=== PATIENT | female | born 1990 | race Caucasian/White ===

== ENCOUNTER 2016-10-22 08:49 | Emergency (ER) | payer OTHER ==
--- NOTE | 2016-10-22 09:48 | DIAGNOSTIC IMAGING REPORT ---
PROCEDURE: CT HEAD WITHOUT CONTRAST INDICATION: SINUSITIS TECHNIQUE: Axial CT images were acquired through the head. Coronal and sagittal reformations were created. COMPARISON: None. FINDINGS: No intracranial hemorrhage or extraaxial fluid collections. Ventricles are normal in size, shape and position. There is no mass, mass effect or midline shift. The rodney-white matter differentiation is normal. There is no edema. The calvarium is intact. The paranasal sinuses and mastoid air cells are normally aerated. The extracranial soft tissues and orbits are normal. IMPRESSION: 1. No CT evidence of acute intracranial process. 2. Findings discussed with Viktoriya at 10:[address] scans at this facility use dose modulation, iterative reconstruction, and/or weight-based dosing when appropriate to reduce radiation dose to as low as reasonably achievable.
--- NOTE | 2016-10-22 09:58 | DIAGNOSTIC IMAGING REPORT ---
PROCEDURE: XR CHEST 2 VIEW INDICATION: COUGH TECHNIQUE: PA and lateral views. COMPARISON: None. FINDINGS: Lungs are clear. Heart and mediastinum are normal. Thorax is normal. IMPRESSION: 1. Negative chest.
--- NOTE | 2016-10-22 11:02 | ED ORDER SUMMARY ---
..... Patient: MY MEJIA OrderSheet [facility] VisitID: [id number] [address] [place] [address] 26y, F Registration Date/Time: 10/22/2016 ORDER SHEET Weight: 75.2 kg (stated) Allergies: Sulfa Antibiotics GENERAL ORDERS: Chest 2V Urgent (09:10/22/2016 PHutchinson DO) (Ack 9:23 RKaruga) (9:53 EHassan R.N.) CT Head wo Cont Urgent (:10/22/2016 PHutchinson DO) (Ack 9:23 RKaruga) (9:53 EHassan R.N.) LP Tray (and patient needs to sign LP consent) (:10/22/2016 PHflchinson DO) (Ack 9:23 RKaruga) CBC w Diff Urgent (09:10/22/2016 PHutchinson DO) (Ack 9:23 RKaruga) CMP Urgent (09:10/22/2016 PHflchinson DO) (Ack 9:23 RKaruga) UA-Culture if indicated Urgent (:10/22/2016 PHutchinson DO) (Ack 9:23 RKaruga) (9:36 EHassan R.N.) Urine Drug Screen Urgent (09:10/22/2016 PHutchinson DO) (Ack 9:23 RKaruga) (9:36 EHassan R.N.) Urine Urgent (:10/22/2016 PHflchinson DO) (Ack 9:23 RKaruga) (9:36 EHassan R.N.) PT with INR Urgent (09:10/22/2016 PHutchinson DO) (Ack 9:23 RKaruga) Rapid Influenza Screen (Nasal Pharyngeal) (pickle processor swab) Urgent (:10/22/2016 PHutchinson DO) (Ack 9:28 RKaruga) (9:53 EHassan R.N.) PCT (Procalcitonin) Urgent (09:10/22/2016 PHutchinson DO) (Ack 10:21 LTapper) MEDICATION ORDERS: IV FLUIDS: IV NS : initial bolus 1000 mL (1000 mL/hr), then 1000 mL/hr for X1 (NOW) (:10/22/2016 [facility]) (Ack 9:59 SStone R.N.) (9:59 SStone R.N.) Dilaudid IV 0.5 mg (NOW) (:10/22/2016 [facility]) (Ack 9:59 SStone R.N.) (10:00 SStone R.N.) Zofran IV 4 mg (NOW) (:10/22/2016 [facility]) (Ack 9:59 SStone R.N.) (10:00 SStone R.N.) ORDER SHEET NOTES: [Electronically signed by Carla Juarez R.N. (11:10/22/2016)] [Electronically signed by Arnaud Sadler DO (11:10/23/2016)] [Electronically locked/signed by Carla Juarez R.N. (11:10/22/2016)]
--- NOTE | 2016-10-22 11:02 | ED CLINICAL REPORT ---
Clinical Report - Physicians/Mid Levels [facility] [address] [place] [address] 10/22/2016 8:50 Patient: MY MEJIA Time Seen: 09:06. Arrived- By private vehicle. Historian- patient. HISTORY OF PRESENT ILLNESS Is still present. Chief Complaint: HEADACHE. This started yesterday. It was gradual in onset and has been waxing/waning. Onset during light activity. It is described as pressure. Quality described as unlike previous headaches and burning. Located in the frontal, right maxillary, left maxillary and occipital region and facial region. Has had neck pain. At its maximum, severity described as moderate. When seen in the E.D., severity described as moderate. Modifying factors: worsened by bright light and noise; relieved by rest, quiet room and dark room. The patient has had photophobia and nausea. She has had vomiting. The vomiting has occurred only once. No bilious emesis, feculent emesis or frankly bloody emesis. No numbness or weakness. Similar symptoms previously: Recent medical care: The patient was seen recently at this facility in the emergency department. REVIEW OF SYSTEMS No fever, sore throat, carbon monoxide exposure, chest pain or difficulty breathing. No abdominal pain, diarrhea, pain with urination, skin rash or enlarged lymph nodes. No back pain. The patient has had sinus pressure and muscle aches involving the neck. She has had a moderate cough productive of sputum. All systems otherwise negative, except as recorded above. PAST HISTORY Primary care provider: Dr Ivory ([facility]) Surgeries: Bladder hydro distention. Bladder surgery . Dental Work. Dilatation & Curettage. Laparoscopy. PROBLEMS: Bipolar Disorder. Depression. Anxiety Reaction. Irritable Bowel Syndrome. Gastroesophageal Reflux. Asthma Abscess. Medications: seroquel 50-100 mg q.h.s.. Allergies: Sulfa Antibiotics. SOCIAL HISTORY Never smoker. No alcohol use or drug use. Residence: in [facility] - states visiting locally. ADDITIONAL NOTES The nursing notes have been reviewed. PHYSICAL EXAM Vital Signs: 10/22/2016 09:00 BP: 131/73. HR: 78. RR: 18. O2 saturation: 100%. Temp: 97.8 F. Pain level now: 810. Appearance: Alert. No acute distress. Head: No tenderness to palpation/percussion over the sinuses or temporal artery tenderness. Eyes: Pupils equal, round and reactive to light. Eyes normal inspection. ENT: Pharynx normal. Neck: Normal inspection. CVS: Normal heart rate and rhythm. Heart sounds normal. Pulses normal. Respiratory: No respiratory distress. Breath sounds normal. Abdomen: Soft and nontender. Back: Normal inspection. No CVA tenderness. Skin: Skin warm and dry. Normal skin color. No rash. Normal skin turgor. Extremities: Extremities exhibit normal ROM. No lower extremity edema. Neuro: Oriented X 3. Alert. Abnormal mood/affect. Speech normal. Cranial nerves normal (as tested). No cerebellar findings. No motor deficit. No sensory deficit. Reflexes normal. LABS, X-RAYS, AND EKG Chest X-ray: No acute disease. Normal lung markings present. Normal heart size. Mediastinum normal. Great vessels normal. No infiltrate. No fracture. Views: PA and lateral. Technique: good. The X-rays were interpreted contemporaneously by me. CT Head: Normal study. No acute changes. No bony abnormalities, no hemorrhage, no intracranial mass, no midline shift and no hydrocephalus. (mild right maxillary sinusitis). Head CT performed without contrast. The study was independently viewed by me, interpreted by the radiologist and discussed with the radiologist. Laboratory Tests: UA-Culture if indicated: (JHONNY: 10/22/2016 09:30) ( MsgRcvd 10/22/2016 10:02) Final results Test Result Flag Units (Reference) URINE COLOR YELLOW URINE APPEARANCE CLEAR URINE GLUCOSE NEGATIVE (NEGATIVE) URINE BILIRUBIN NEGATIVE (NEGATIVE) URINE KETONE NEGATIVE (NEGATIVE) URINE SPECIFIC GRAVITY 1.025 (1.010-1.030) URINE PH 6.5 (5.0-8.0) URINE PROTEIN NEGATIVE (NEGATIVE) URINE UROBILINOGEN 0.2 EU/dL (0.2-1.0) URINE NITRITE NEGATIVE (NEGATIVE) URINE BLOOD NEGATIVE (NEGATIVE) URINE LEUK ESTERASE NEGATIVE (NEGATIVE) URINE RBC NONE SEEN rbc/hpf (0-1) URINE WBC 1-3 wbc/hpf (0-1) URINE EPITHELIAL CELLS 1-3 EPI/hpf (0-5) URINE BACTERIA TRACE (<1+) (NONE SEEN) URINE COMMENT CULT NOT INDICATED 5-10 CALCIUM OXALATE CRYSTALS/HPFURINE CULTURES ARE SET-UP BASED ON THE FOLLOWING CRITERIA:POSITIVE NITRITEPOSITIVE LEUKOCYTE ESTERASEGREATER THAN 10 WHITE BLOOD CELLSMODERATE (2+) OR GREATER BACTERIA Urine: (JHONNY: 10/22/2016 09:30) ( MsgRcvd 10/22/2016 09:43) Final results Test Result Flag Units (Reference) URINE NEGATIVE CBC w Diff: (JHONNY: 10/22/2016 09:55) ( MsgRcvd 10/22/2016 10:10) Final results Test Result Flag Units (Reference) WHITE BLOOD COUNT 7.6 K/uL (4.5-11.5) RED BLOOD COUNT 4.77 M/uL (4.00-5.20) HEMOGLOBIN 13.1 gm/dL (12.0-16.0) HEMATOCRIT 39.7 % (36.0-46.0) MEAN CELL VOLUME 83 fL (80-100) MEAN CORPUSCULAR HGB 27 pg (26-34) MEAN CORPUSCULAR HGB CONC 33 g/dL (31-37) RED CELL DISTRIBUTION WIDTH 12.6 % (11.6-14.8) PLATELET COUNT 241 K/uL (150-400) NEUTROPHIL % 71.3 % (50-75) LYMPH % 21.6 L % (25-40) MONO % 6.0 % (3-14) EOSINOPHIL % 1.0 % (0-4) BASOPHIL % 0.1 % (0-2) PT with INR: (JHONNY: 10/22/2016 09:55) ( MsgRcvd 10/22/2016 10:37) Final results Test Result Flag Units (Reference) INR 1.0 (0.8-1.2) Low Intensity Therapy: INR 1.5-2.0 PT range 18.5-23.1Mod.Intensity Therapy: INR 2.0-3.0 PT range 23.1-31.5High Intensity Therapy: INR 2.5-3.5 PT range 27.4-35.5High Intensity Therapy 2: INR 3.0-4.0 PT range 31.5-39.3 Urine Drug Screen: (JHONNY: 10/22/2016 09:30) ( MsgRcvd 10/22/2016 10:02) Final results Test Result Flag Units (Reference) AMPHETAMINE/METHAMPHETAMINE NEGATIVE (NEGATIVE) BARBITURATE NEGATIVE (NEGATIVE) BENZODIAZEPINE NEGATIVE (NEGATIVE) CANNABINOID NEGATIVE (NEGATIVE) COCAINE NEGATIVE (NEGATIVE) ECSTASY NEGATIVE (NEGATIVE) METHADONE NEGATIVE (NEGATIVE) OPIATE NEGATIVE (NEGATIVE) The urine drug screen is a qualitative screening test fordrug overdose and abuse. All screen results should beconsidered as presumptive.Drugs screened for are as follows:BenzodiazepinesCocaineAmphetamines/MetamphetaminesTHC (Tetrahydrocannabinol)OpiatesBarbituratesEcstasyMethadonePositive results are unconfirmed. For confirmation, notifythe lab for the specimen to be sent to the reference lab.All confirmations must be performed by a differentmethodology.The ingestion of natural herbal and plant productscontaining Ephedra/Ephedra metabolites can produce in urineone or more substances capable of cross reacting withamphetamine/methamphetamine immunoassays. These testsprovide a preliminary result only. A more specificalternative chemical method must be used to obtain aconfirmed analytical result. CMP: (JHONNY: 10/22/2016 09:55) ( MsgRcvd 10/22/2016 10:24) Final results Test Result Flag Units (Reference) GLUCOSE 118 H mg/dL (70-110) BUN 14 mg/dL (7-18) CREATININE 0.6 mg/dL (0.6-1.3) Estimated GFR >60 mL/min Estimated GFR- >60 mL/min Note: Persistent reduction over 3 months in eGFR<60 mL/min/1.73 m2 defines CKD. Patients with eGFR values>=60 mL/min/1.73 m2 may also have CKD if evidence ofpersistent proteinuria. Additional information may be foundat www.kidney.org. SODIUM 141 mmol/L (136-145) POTASSIUM 3.8 mmol/L (3.5-5.1) CHLORIDE 106 mmol/L (98-107) CARBON DIOXIDE 27 mmol/L (21-32) CALCIUM 9.0 mg/dL (8.5-10.1) TOTAL PROTEIN 7.7 g/dL (6.4-8.2) ALBUMIN 3.8 g/dL (3.3-5.0) BILIRUBIN, TOTAL 0.2 mg/dL (0.0-1.0) ALKALINE PHOSPHATASE 179 H U/L (46-116) AST (SGOT) 19 U/L (15-37) ALT (SGPT) 26 U/L (12-78) Rapid Influenza Screen: (JHONNY: 10/22/2016 09:48) ( MsgRcvd 10/22/2016 10:08) Final results SPECIMEN DESCRIPTION: OFFENDER EMPLOYMENT SPECIALIST SWAB Test Result Flag Units (Reference) RAPID INFLUENZA SCREEN DATE: 10/22/16 INFLUENZA A: NEGATIVE SCREEN FOR INFLUENZA A INFLUENZA B: NEGATIVE SCREEN FOR INFLUENZA B . Pulse Oximetry: 10/22/2016 09:00 O2 saturation: 100%. (FIO2 - room air). Interpretation: normal. PROGRESS AND PROCEDURES Course of Care: Normal Saline 1 liter IVPB given. Zofran 4 mg IVP given. Dilaudid 0.5 mg IVP given. 10:00. Pt has refused the LP despite full explanation of the need for this test to rule out dangerous causes of her HERNANDEZ such as SAH and meningitis. 10:31 10/22/16. Labs back and essentially unremarkable (mild alk phos elevation). CT with mild right max sinusitis c/w viral URI. Pt continues to refuse LP. Patient/family counseled. Old ED records reviewed. Patient has had multiple ED visits (8 visits to [facility] ED in past approx 4 months). Disposition: Discharged. Condition: stable and improved. CLINICAL IMPRESSION Acute headache. Acute viral rhinitis and maxillary sinusitis. Acute maxillary sinusitis Abnormal liver function test: alkaline phosphatase (mild). INSTRUCTIONS Do not work for three days. (You have refused the spinal tap / lumbar puncture and understand that I cannot rule out meningitis or bleeding in the brain without this). Warnings: Further evaluation is necessary in order to recheck abnormal lab, obtain test results, conduct further tests and assess the possibility of serious illness. It is very important to follow up with a physician. SEDATIVE MEDICATION: You were given sedative medication during your visit. Do not drive or operate dangerous machinery. CONTROLLED SUBSTANCE WARNINGS. GENERAL WARNINGS: Return or contact your physician immediately if your condition worsens or changes unexpectedly, if not improving as expected, or if other problems arise. Your Current Medications: CONTINUE TAKING THE FOLLOWING MEDICATIONS: seroquel 50-100 mg q.h.s.*. Prescription Medications: Zofran (orally disintegrating tablets) 4 mg: take 1-2 orally every 8 hours as needed for nausea and vomiting. Dispense ten (10). No refill. Substitution is permissible. OTC Medications: Acetaminophen (available over the counter): take according to label instructions. Afrin nasal spray (Available over the counter): Take according to label instructions. Motrin (available over the counter): take according to label instructions. Follow-up: Follow up with your doctor Cachorro tomorrow. (Electronically signed by Arnaud Sadler DO 10/23/2016 11:23)
--- NOTE | 2016-10-22 11:02 | ED NURSING NOTES ---
Clinical Report - Nurses [facility] [address] [place] [address] 10/22/2016 8:50 Patient: MY MEJIA TRIAGE Triage time 09:00. Acuity: LEVEL 4. Chief Complaint: (Right-sided headache with tingling and sinus pressure x 1 day. Now with n/v). --09:03 Kristie Euceda R.N. 09:00 10/22/16. BP: 131/73. HR: 78. RR: 18. O2 saturation: 100%. Temp: 97.8 F. Pain level now: 05/13. --09:03 Kristie Euceda R.N. Weight: 75.2 kg stated. Height/Length: 67 inches Per Patient. BMI: 26. --09:02 Kristie Euceda R.N. Medications seroquel 50-100 mg q.h.s.. --09:02 Krsitie Euceda R.N. Allergies Sulfa Antibiotics. --09:01 Kristie Euceda R.N. History Arrived by private vehicle. Historian: patient. Primary physician (Cachorro). This started yesterday. ( vomiting). 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 Took ibuprofen. SOCIAL HX: Never smoker. No alcohol use or drug use. The patient was exposed to MRSA. SELF HARM ASSESSMENT: A self harm assessment was performed. The patient answered "no" to the question "Do you have thoughts of harming or killing yourself?". She has been placed under supervision. NUTRITIONAL RISK ASSESSMENT: The nutritional risk assessment revealed no deficiencies. FUNCTIONAL ASSESSMENT: Functional assessment: no impairments noted. LEARNING NEEDS ASSESSMENT: The learning needs assessment revealed no barriers. SKIN INTEGRITY ASSESSMENT: Skin integrity risk assessment completed. No skin integrity risk identified. --09:03 Kristie Euceda R.N. PROBLEMS: Bipolar Disorder. Depression. Anxiety Reaction. Irritable Bowel Syndrome. Gastroesophageal Reflux. Asthma. --09:02 Kristie Euceda R.N. Abscess [RuleOut]. --09:02 Stone, Kristie, R.N. Interventions ID band on patient. To treatment room. --09:03 Kristie Euceda R.N. PHYSICAL ASSESSMENT GENERAL / NEURO / PSYCH: Oriented X 4. Appears in no acute distress. Appears in pain. HEENT: Pupils equal, round and reactive to light. No facial asymmetry noted. RESPIRATORY: Respirations not labored. CVS: Pulses within normal limits. GI / : Abdomen soft and nontender. SKIN: Skin is warm and dry. --09:04 Kristie Euceda R.N. NURSING PROGRESS NOTES Reassurance given. Patient identifiers checked. Call light placed in reach. Side rails up. Bed placed in lowest position. Patient waiting for evaluation. --09:04 Kristie uEceda R.N. 09:55 10/22/2016 Dilaudid (HYDROmorphone HCl PF) IVP 0.5 mg given over 1 minute(s) via site #1. Allergies verified and confirmed 5 rights. IV patency established. IV site checked: no pain, redness, or swelling. IV flushed thoroughly pre- and post-medication administration. --10:00 Kristie Euceda R.N. 09:55 10/22/2016 Zofran (Ondansetron HCl) IVP 4 mg given over 1 minute(s) via site #1. --10:00 Kristie Euceda R.N. 09:59 10/22/2016 Site #1 started via IV in the right antecubital space with an 20g angiocath; two attempts. Blood drawn: rainbow set. Labeled in the presence of the patient. Saline lock flushed with 10 mL saline. --09:59 Kristie Euceda R.N. 09:59 10/22/2016 Started bag #1 1000 mL IV Fluids IV NS (Saline); at 1000 mL/hr over 1 hour(s) via site #1 --09:59 Kristie Euceda R.N. 11:00 10/22/2016 IV Fluids IV NS Discontinued: bag #1. Total amount infused: 1000 mL. IV patency established. IV site checked: no pain, redness, or swelling. IV flushed thoroughly. --11:18 Carla Juarez R.N. 11:17 10/22/2016 Site #1 removed upon discharge. Bandage applied. --11:17 Carla Juarez R.N. DISPOSITION / DISCHARGE Departure time: 11:Oct 22 2016. ( First meeting with pt.). No learning barriers present. Discharge instructions provided and reviewed with the patient. Reviewed medication(s). Patient verbalized understanding. Written instructions provided in Cape Verdean. The patient was discharged by the physician. She was discharged home and accompanied by floodplain manager. She left the Emergency Department ambulatory and via private vehicle. Lamination Builder driving. --11:17 Carla Juarez R.N. 11:17 10/22/16. BP: 116/79. HR: 74. RR: 18. O2 saturation: 100%. --11:17 Carla Juarez R.N. Locked/Released at 10/22/2016 11:18 by Carla Juarez R.N.
--- NOTE | 2016-10-22 11:02 | ED NURSING NOTES ---
Clinical Report - Nurses [facility] [address] [place] [address] 10/22/2016 8:50 Patient: MY MEJIA TRIAGE Triage time 09:00. Acuity: LEVEL 4. Chief Complaint: (Right-sided headache with tingling and sinus pressure x 1 day. Now with n/v). --09:03 Kristie Euceda R.N. 09:00 10/22/16. BP: 131/73. HR: 78. RR: 18. O2 saturation: 100%. Temp: 97.8 F. Pain level now: 05/13. --09:03 Kristie Euceda R.N. Weight: 75.2 kg stated. Height/Length: 67 inches Per Patient. BMI: 26. --09:02 Kristie Euceda R.N. Medications seroquel 50-100 mg q.h.s.. --09:02 Kristie Euceda R.N. Allergies Sulfa Antibiotics. --09:01 Kristie Euceda R.N. History Arrived by private vehicle. Historian: patient. Primary physician (Cachorro). This started yesterday. ( vomiting). 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 Took ibuprofen. SOCIAL HX: Never smoker. No alcohol use or drug use. The patient was exposed to MRSA. SELF HARM ASSESSMENT: A self harm assessment was performed. The patient answered "no" to the question "Do you have thoughts of harming or killing yourself?". She has been placed under supervision. NUTRITIONAL RISK ASSESSMENT: The nutritional risk assessment revealed no deficiencies. FUNCTIONAL ASSESSMENT: Functional assessment: no impairments noted. LEARNING NEEDS ASSESSMENT: The learning needs assessment revealed no barriers. SKIN INTEGRITY ASSESSMENT: Skin integrity risk assessment completed. No skin integrity risk identified. --09:03 Kristie Euceda R.N. PROBLEMS: Bipolar Disorder. Depression. Anxiety Reaction. Irritable Bowel Syndrome. Gastroesophageal Reflux. Asthma. --09:02 Kristie Euceda R.N. Abscess [RuleOut]. --09:02 Stone, Kristie, R.N. Interventions ID band on patient. To treatment room. --09:03 Kristie Euceda R.N. PHYSICAL ASSESSMENT GENERAL / NEURO / PSYCH: Oriented X 4. Appears in no acute distress. Appears in pain. HEENT: Pupils equal, round and reactive to light. No facial asymmetry noted. RESPIRATORY: Respirations not labored. CVS: Pulses within normal limits. GI / : Abdomen soft and nontender. SKIN: Skin is warm and dry. --09:04 Kristie Euceda R.N. NURSING PROGRESS NOTES Reassurance given. Patient identifiers checked. Call light placed in reach. Side rails up. Bed placed in lowest position. Patient waiting for evaluation. --09:04 Kristie Euceda R.N. 09:55 10/22/2016 Dilaudid (HYDROmorphone HCl PF) IVP 0.5 mg given over 1 minute(s) via site #1. Allergies verified and confirmed 5 rights. IV patency established. IV site checked: no pain, redness, or swelling. IV flushed thoroughly pre- and post-medication administration. --10:00 Kristie Euceda R.N. 09:55 10/22/2016 Zofran (Ondansetron HCl) IVP 4 mg given over 1 minute(s) via site #1. --10:00 Kristie Euceda R.N. 09:59 10/22/2016 Site #1 started via IV in the right antecubital space with an 20g angiocath; two attempts. Blood drawn: rainbow set. Labeled in the presence of the patient. Saline lock flushed with 10 mL saline. --09:59 Kristie Euceda R.N. 09:59 10/22/2016 Started bag #1 1000 mL IV Fluids IV NS (Saline); at 1000 mL/hr over 1 hour(s) via site #1 --09:59 Kristie Euceda R.N. 11:00 10/22/2016 IV Fluids IV NS Discontinued: bag #1. Total amount infused: 1000 mL. IV patency established. IV site checked: no pain, redness, or swelling. IV flushed thoroughly. --11:18 Carla Juarez R.N. 11:17 10/22/2016 Site #1 removed upon discharge. Bandage applied. --11:17 Carla Juarez R.N. DISPOSITION / DISCHARGE Departure time: 11:Oct 22 2016. ( First meeting with pt.). No learning barriers present. Discharge instructions provided and reviewed with the patient. Reviewed medication(s). Patient verbalized understanding. Written instructions provided in Gabonese. The patient was discharged by the physician. She was discharged home and accompanied by marine fitter. She left the Emergency Department ambulatory and via private vehicle. Superintendent Overhead Distribution driving. --11:17 Carla Juarez R.N. 11:17 10/22/16. BP: 116/79. HR: 74. RR: 18. O2 saturation: 100%. --11:17 Carla Juarez R.N. Locked/Released at 10/22/2016 11:18 by Carla Juarez R.N.
--- NOTE | 2016-10-22 11:02 | ED ORDER SUMMARY ---
..... Patient: MY MEJIA OrderSheet [facility] VisitID: [id number] [address] [place] [address] 26y, F Registration Date/Time: 10/22/2016 ORDER SHEET Weight: 75.2 kg (stated) Allergies: Sulfa Antibiotics GENERAL ORDERS: Chest 2V Urgent (09:10/22/2016 PHutchinson DO) (Ack 9:23 RKaruga) (9:53 EHassan R.N.) CT Head wo Cont Urgent (:10/22/2016 PHutchinson DO) (Ack 9:23 RKaruga) (9:53 EHassan R.N.) LP Tray (and patient needs to sign LP consent) (:10/22/2016 PHohchinson DO) (Ack 9:23 RKaruga) CBC w Diff Urgent (09:10/22/2016 PHutchinson DO) (Ack 9:23 RKaruga) CMP Urgent (09:10/22/2016 PHohchinson DO) (Ack 9:23 RKaruga) UA-Culture if indicated Urgent (:10/22/2016 PHutchinson DO) (Ack 9:23 RKaruga) (9:36 EHassan R.N.) Urine Drug Screen Urgent (09:10/22/2016 PHutchinson DO) (Ack 9:23 RKaruga) (9:36 EHassan R.N.) Urine Urgent (:10/22/2016 PHohchinson DO) (Ack 9:23 RKaruga) (9:36 EHassan R.N.) PT with INR Urgent (09:10/22/2016 PHutchinson DO) (Ack 9:23 RKaruga) Rapid Influenza Screen (Nasal Pharyngeal) (pnp swab) Urgent (:10/22/2016 PHutchinson DO) (Ack 9:28 RKaruga) (9:53 EHassan R.N.) PCT (Procalcitonin) Urgent (09:10/22/2016 PHutchinson DO) (Ack 10:21 LTapper) MEDICATION ORDERS: IV FLUIDS: IV NS : initial bolus 1000 mL (1000 mL/hr), then 1000 mL/hr for X1 (NOW) (:10/22/2016 [facility]) (Ack 9:59 SStone R.N.) (9:59 SStone R.N.) Dilaudid IV 0.5 mg (NOW) (:10/22/2016 [facility]) (Ack 9:59 SStone R.N.) (10:00 SStone R.N.) Zofran IV 4 mg (NOW) (:10/22/2016 [facility]) (Ack 9:59 SStone R.N.) (10:00 SStone R.N.) ORDER SHEET NOTES: [Electronically signed by Carla Juarez R.N. (11:10/22/2016)] [Electronically signed by Arnaud Sadler DO (11:10/23/2016)] [Electronically locked/signed by Carla Juarez R.N. (11:10/22/2016)]
--- NOTE | 2016-10-23 11:24 | ED DISCHARGE INSTRUCTIONS ---
Patient: MY MEJIA General Instructions [facility] VisitID: [id number] [place] [address] 26y, F Registration Date/Time: 10/22/2016 Acute headache. Acute viral rhinitis and maxillary sinusitis. Acute maxillary sinusitis Abnormal liver function test: alkaline phosphatase (mild). INSTRUCTIONS Do not work for three days. (You have refused the spinal tap / lumbar puncture and understand that I cannot rule out meningitis or bleeding in the brain without this). Warnings: Further evaluation is necessary in order to recheck abnormal lab, obtain test results, conduct further tests and assess the possibility of serious illness. It is very important to follow up with a physician. SEDATIVE MEDICATION: You were given sedative medication during your visit. Do not drive or operate dangerous machinery. CONTROLLED SUBSTANCE WARNINGS. GENERAL WARNINGS: Return or contact your physician immediately if your condition worsens or changes unexpectedly, if not improving as expected, or if other problems arise. Your Current Medications: CONTINUE TAKING THE FOLLOWING MEDICATIONS: seroquel 50-100 mg q.h.s.*. Prescription Medications: Zofran (orally disintegrating tablets) 4 mg: take 1-2 orally every 8 hours as needed for nausea and vomiting. Dispense ten (10). No refill. Substitution is permissible. OTC Medications: Acetaminophen (available over the counter): take according to label instructions. Afrin nasal spray (Available over the counter): Take according to label instructions. Motrin (available over the counter): take according to label instructions. Follow-up: Follow up with your doctor C[place] tomorrow. ADDITIONAL INFORMATION Headache [Unspecified] The cause of your headache today is not clear, but it does not appear to be the sign of any serious illness. Under stress, some people tense the muscles of their shoulder, neck and scalp without knowing it. If this condition lasts long enough, a TENSION HEADACHE can occur. A MIGRAINE HEADACHE is caused by changes in blood flow to the brain. A migraine attack may be triggered by emotional stress, hormone changes during the menstrual cycle, oral contraceptives, alcohol use, certain foods containing tyramine, eye strain, weather changes, missing meals, lack of sleep or oversleeping. Other causes of headache include a viral illness with high fever, head injury with concussion, sinus, ear or throat infection, dental pain and TMJ (jaw joint) pain. More serious but less common causes of headache include stroke, brain hemorrhage, brain tumor, meningitis and encephalitis. Home Care: If you were given pain medicine for this headache, do not drive yourself home. Arrange for a ride, instead. When you get home, try to sleep. You should feel much better when you wake up. Apply heat to the back of your neck to relieve neck muscle spasm. Migraine headaches may respond best to an ice pack on the forehead or at the base of the skull. If you are having nausea or vomiting, follow a light diet until your headache is relieved. If you have a migraine type headache, use sunglasses when in the daylight or around bright indoor lighting until symptoms improve. Bright glaring light can worsen this kind of headache. Follow Up with your doctor if the headache is not better within the next 24 hours. If you have frequent headaches you should discuss a treatment plan with your primary care doctor. By being aware of the earliest signs of headache, and starting treatment right away, you may be able to stop the pain yourself. Get Prompt Medical Attention if any of the following occur: Worsening of your head pain or no improvement within 24 hours Repeated vomiting (unable to keep liquids down) Fever of 100.4F (38C) or higher, or as directed by your healthcare provider Stiff neck Extreme drowsiness, confusion or fainting Dizziness, vertigo (dizziness with spinning sensation) Weakness of an arm or leg or one side of the face Difficulty with speech or vision Viral Respiratory Illness [Adult] You have an Upper Respiratory Illness (URI) caused by a virus. This illness is contagious during the first few days. It is spread through the air by coughing and sneezing or by direct contact (touching the sick person and then touching your own eyes, nose or mouth). Most viral illnesses go away within 7-10 days with rest and simple home remedies. Sometimes, the illness may last for several weeks. Antibiotics will not kill a virus and are generally not prescribed for this condition. Home Care: 1) If symptoms are severe, rest at home for the first 2-3 days. When you resume activity, don't let yourself get too tired. 2) Avoid being exposed to cigarette smoke (yours or others). 3) Tylenol (acetaminophen) or ibuprofen (Advil, Motrin) will help fever, muscle aching and headache. (Persons under 18 with fever should not take aspirin since this may cause liver damage.) 4) Your appetite may be poor, so a light diet is fine. Avoid dehydration by drinking 6-8 glasses of fluids per day (water, soft drinks, juices, tea, soup). Extra fluids will help loosen secretions in the nose and lungs. 5) Uhoq-aat-rnxnlsp cold medicines will not shorten the length of time youre sick, but they may be helpful for the following symptoms: cough (Robitussin DM); sore throat (Chloraseptic lozenges or spray); nasal and sinus congestion (Actifed, Sudafed, Chlortrimeton). Follow Up with your doctor or as advised if you dont improve over the next week. Get Prompt Medical Attention if any of the following occur: -- Cough with lots of colored sputum (mucus) or blood in your sputum -- Chest pain, shortness of breath, wheezing or have trouble breathing -- Severe headache; face, neck or ear pain -- Fever over 100.4 F (38.0 C) for more than three days -- You cant swallow due to throat pain Sinusitis [No Abx Tx] The sinuses are air-filled spaces within the bones of the face. They connect to the inside of the nose. Sinusitis is an inflammation of the tissue lining the sinus cavity. Sinus inflammation can occur during a cold or hay-fever (allergies to pollens and other particles in the air) and cause symptoms of sinus congestion and fullness and perhaps a low-grade fever. This does not require antibiotic treatment. Home Care: Drink plenty of water, hot tea, and other liquids to stay well hydrated. This thins the mucus and promotes sinus drainage. Apply heat to the painful areas of the face. Use a towel soaked in hot water. Or, coat hanger shaper machine operator the shower and direct the hot spray onto your face. This is a good way to inhale warm water vapor and get heat on your face at the same time. (Cover your mouth and nose with your hands so you can still breathe as you do this.) Use a vaporizer with products such as [employer] VapoRub (contains menthol) at night. Suck on peppermint, menthol or eucalyptus hard candies during the day. An expectorant containing guaifenesin (such as Robitussin), helps to thin the mucus and promote drainage from the sinuses. Odqz-qmc-vwovaxe decongestants may be used unless a similar medicine was prescribed. Nasal sprays work the fastest. Use one that contains phenylephrine (Magdy-synephrine, Sinex and others) or oxymetazoline (Afrin). First blow the nose gently to remove mucus, then apply the drops. Do not use these medicines more often than directed on the label or for more than three days or symptoms may worsen. You may also use tablets containing pseudoephedrine (Sudafed). Many sinus remedies combine ingredients, which may increase side effects. Read the labels or ask the pharmacist for help. NOTE: Persons with high blood pressure should not use decongestants. They can raise blood pressure. Antihistamines are useful if allergies are a cause of your sinusitis. The mildest one is chlorpheniramine (available without a prescription). The dose for adults is 8-12mg three times a day. [NOTE: Do not use chlorpheniramine if you have glaucoma or if you are a man with trouble urinating due to an enlarged prostate.] Claritin (loratidine) is an antihistamine that causes less drowsiness and is a good alternative for daytime use. When allergies are the cause for sinusitis, a saline nasal rinse may give relief. Saline nasal rinse reduces swelling and clears excess mucus. This allows sinuses to drain. Pre-packaged kits are available at most drug stores. These contain pre-mixed salt packets and an irrigation device. You may use acetaminophen (Tylenol) or ibuprofen (Motrin, Advil) to control pain, unless another pain medicine was prescribed. [ NOTE: If you have chronic liver or kidney disease or ever had a stomach ulcer, talk with your doctor before using these medicines.] (Aspirin should never be used in anyone under 18 years of age who is ill with a fever. It may cause severe liver damage.) Follow Up with your doctor or this facility in one week or as instructed by our staff if not improving. Get Prompt Medical Attention if any of the following occur: Green or yellow drainage from the nose or into the back of the throat (post-nasal drip) Worsening sinus pain or headache Stiff neck Unusual drowsiness, confusion or not acting like your normal self Swelling of the forehead or eyelids Vision problems including blurred or double vision Fever of 100.4F (38C) or higher, or as directed by your healthcare provider Seizure Ondansetron Oral disintegrating tablet What is this medicine? ONDANSETRON (on SHIRLEY se lola) is used to treat nausea and vomiting caused by chemotherapy. It is also used to prevent or treat nausea and vomiting after surgery. How should I use this medicine? These tablets are made to dissolve in the mouth. Do not try to push the tablet through the foil backing. With dry hands, peel away the foil backing and gently remove the tablet. Place the tablet in the mouth and allow it to dissolve, then swallow. While you may take these tablets with water, it is not necessary to do so. Talk to your retail client manager regarding the use of this medicine in children. Special care may be needed. What side effects may I notice from receiving this medicine? Side effects that you should report to your doctor or health career coordinator as soon as possible: allergic reactions like skin rash, itching or hives, swelling of the face, lips, or tongue breathing problems dizziness fast or irregular heartbeat feeling faint or lightheaded, falls fever and chills swelling of the hands and feet tightness in the chest Side effects that usually do not require medical attention (report to your doctor or health career coordinator if they continue or are bothersome): constipation or diarrhea headache What may interact with this medicine? Do not take this medicine with any of the following medications: -apomorphine -cisapride -dofetilide -dronedarone -pimozide -thioridazine -ziprasidone This medicine may also interact with the following medications: -carbamazepine -phenytoin -rifampicin -tramadol -other medicines that prolong the QT interval (cause an abnormal heart rhythm) What if I miss a dose? If you miss a dose, take it as soon as you can. If it is almost time for your next dose, take only that dose. Do not take double or extra doses. Where should I keep my medicine? Keep out of the reach of children. Store between 2 and 30 degrees C (36 and 86 degrees F). Throw away any unused medicine after the expiration date. What should I tell my health care provider before I take this medicine? They need to know if you have any of these conditions: heart disease history of irregular heartbeat liver disease low levels of magnesium or potassium in the blood an unusual or allergic reaction to ondansetron, granisetron, other medicines, foods, dyes, or preservatives or trying to get breast-feeding What should I watch for while using this medicine? Check with your doctor or health career coordinator as soon as you can if you have any sign of an allergic reaction. Acetaminophen Oral tablet What is this medicine? ACETAMINOPHEN (a set a TAMI monika fen) is a pain reliever. It is used to treat mild pain and fever. How should I use this medicine? Take this medicine by mouth with a glass of water. Follow the directions on the package or prescription label. Take your medicine at regular intervals. Do not take your medicine more often than directed. Talk to your retail client manager regarding the use of this medicine in children. While this drug may be prescribed for children as young as 6 years of age for selected conditions, precautions do apply. What side effects may I notice from receiving this medicine? Side effects that you should report to your doctor or health career coordinator as soon as possible: allergic reactions like skin rash, itching or hives, swelling of the face, lips, or tongue breathing problems fever or sore throat redness, blistering, peeling or loosening of the skin, including inside the mouth trouble passing urine or change in the amount of urine unusual bleeding or bruising unusually weak or tired yellowing of the eyes or skin Side effects that usually do not require medical attention (report to your doctor or health career coordinator if they continue or are bothersome): headache nausea, stomach upset What may interact with this medicine? alcohol imatinib isoniazid other medicines with acetaminophen What if I miss a dose? If you miss a dose, take it as soon as you can. If it is almost time for your next dose, take only that dose. Do not take double or extra doses. Where should I keep my medicine? Keep out of reach of children. Store at room temperature between 20 and 25 degrees C (68 and 77 degrees F). Protect from moisture and heat. Throw away any unused medicine after the expiration date. What should I tell my health care provider before I take this medicine? They need to know if you have any of these conditions: if you frequently drink alcohol containing drinks liver disease an unusual or allergic reaction to acetaminophen, other medicines, foods, dyes or preservatives or trying to get breast-feeding What should I watch for while using this medicine? Tell your doctor or health career coordinator if the pain lasts more than 10 days (5 days for children), if it gets worse, or if there is a new or different kind of pain. Also, check with your doctor if a fever lasts for more than 3 days. Do not take other medicines that contain acetaminophen with this medicine. Always read labels carefully. If you have questions, ask your doctor or pharmacist. If you take too much acetaminophen get medical help right away. Too much acetaminophen can be very dangerous and cause liver damage. Even if you do not have symptoms, it is important to get help right away. Ibuprofen Oral tablet What is this medicine? IBUPROFEN (eye BYOO proe fen) is a non-steroidal anti-inflammatory drug (NSAID). It is used for dental pain, fever, headaches or migraines, osteoarthritis, rheumatoid arthritis, or painful monthly periods. It can also relieve minor aches and pains caused by a cold, flu, or sore throat. How should I use this medicine? Take this medicine by mouth with a glass of water. Follow the directions on the prescription label. Take this medicine with food if your stomach gets upset. Try to not lie down for at least 10 minutes after you take the medicine. Take your medicine at regular intervals. Do not take your medicine more often than directed. A special MedGuide will be given to you by the pharmacist with each prescription and refill. Be sure to read this information carefully each time. Talk to your retail client manager regarding the use of this medicine in children. Special care may be needed. What side effects may I notice from receiving this medicine? Side effects that you should report to your doctor or health career coordinator as soon as possible: allergic reactions like skin rash, itching or hives, swelling of the face, lips, or tongue black or bloody stools, blood in the urine or in vomit breathing problems changes in vision chest pain general ill feeling or flu-like symptoms nausea or vomiting redness, blistering, peeling or loosening of the skin, including inside the mouth slurred speech or weakness on one side of the body stomach pain unexplained weight gain or swelling unusually weak or tired yellowing of eyes or skin Side effects that usually do not require medical attention (report to your doctor or health career coordinator if they continue or are bothersome): constipation or diarrhea dizziness gas or heartburn stomach upset What may interact with this medicine? Do not take this medicine with any of the following medications: cidofovir ketorolac methotrexate pemetrexed This medicine may also interact with the following medications: alcohol aspirin diuretics lithium other drugs for inflammation like prednisone warfarin What if I miss a dose? If you miss a dose, take it as soon as you can. If it is almost time for your next dose, take only that dose. Do not take double or extra doses. Where should I keep my medicine? Keep out of the reach of children. Store at room temperature between 15 and 30 degrees C (59 and 86 degrees F). Keep container tightly closed. Throw away any unused medicine after the expiration date. What should I tell my health care provider before I take this medicine? They need to know if you have any of these conditions: asthma cigarette smoker drink more than 3 alcohol containing drinks a day heart disease or circulation problems such as heart failure or leg edema (fluid retention) high blood pressure kidney disease liver disease stomach bleeding or ulcers an unusual or allergic reaction to ibuprofen, aspirin, other NSAIDS, other medicines, foods, dyes, or preservatives or trying to get breast-feeding What should I watch for while using this medicine? Tell your doctor or healthcare professional if your symptoms do not start to get better or if they get worse. This medicine does not prevent heart attack or stroke. In fact, this medicine may increase the chance of a heart attack or stroke. The chance may increase with longer use of this medicine and in people who have heart disease. If you take aspirin to prevent heart attack or stroke, talk with your doctor or health career coordinator. Do not take other medicines that contain aspirin, ibuprofen, or naproxen with this medicine. Side effects such as stomach upset, nausea, or ulcers may be more likely to occur. Many medicines available without a prescription should not be taken with this medicine. This medicine can cause ulcers and bleeding in the stomach and intestines at any time during treatment. Ulcers and bleeding can happen without warning symptoms and can cause . To reduce your risk, do not smoke cigarettes or drink alcohol while you are taking this medicine. You may get drowsy or dizzy. Do not drive, use machinery, or do anything that needs mental alertness until you know how this medicine affects you. Do not stand or sit up quickly, especially if you are an older patient. This reduces the risk of dizzy or fainting spells. This medicine can cause you to bleed more easily. Try to avoid damage to your teeth and gums when you brush or floss your teeth. You have been given the following additional information: Headache, Unspecified Uri, Viral, No Abx (Adult) Sinusitis, No Abx Ondansetron Oral disintegrating tablet Acetaminophen Oral tablet Ibuprofen Oral tablet Do not work for three days. (Electronically signed by Arnaud Sadler DO 10/23/2016 11:23)
--- NOTE | 2016-10-23 11:24 | ED MAR SUMMARY ---
..... Medication Administration Record [facility] [address] [place] [address] Patient: MY MEJIA Visit ID: [id number] 26y, F Weight: 75.2 kg Height/Length: 67 in BMI: 26 ALLERGIES: Sulfa Antibiotics Given 09:55 10/22/2016 Kristie Euceda R.N. Medication Administered: DILAUDID [IVP] (HYDROMORPHONE HCL PF), Dose: 0.5 mg IVP over 1 minute(s), Site: #1. Medication Ordered: Dilaudid IV 0.5 mg (NOW). Given 09:55 10/22/2016 Kristie Euceda R.N. Medication Administered: ZOFRAN [IVP] (ONDANSETRON HCL), Dose: 4 mg IVP over 1 minute(s), Site: #1. Medication Ordered: Zofran IV 4 mg (NOW). Start 09:59 10/22/2016 Kristie Euceda R.N., Stop 11:00 10/22/2016 Carla Juarez R.N. Medication Administered: IV NS (SALINE), Dose: IV Fluids over 1 hour(s), Rate: 1000 mL/hr, Dispensed: 1000 mL bag, Site: #1 right AC. Medication Ordered: IV NS : initial bolus 1000 mL (1000 mL/hr), then 1000 mL/hr for X1 (NOW).
--- NOTE | 2016-10-23 11:24 | ED MED RECONCILIATION SUMMARY ---
Patient: MY MEJIA Medication Reconciliation Report [facility] VisitID: [id number] [address] [place] [address] 26y, F Registration Date/Time: 10/22/2016 Weight: 75.2 kg Height/Length: 67 in. BMI: 26.0 ALLERGIES: Sulfa Antibiotics The patient's Home Medications are listed below: CONTINUE TAKING THE FOLLOWING MEDICATIONS: seroquel 50-100 mg q.h.s. The source(s) of the original Home Medication information: Not obtained. The following Medications were given to the patient in the Emergency Department: IV NS IV Fluids bolus 0, then 1000 mL/hr, administered: 10/22/2016 9:59:00 AM Dilaudid [IVP] IVP 0.5 mg, administered: 10/22/2016 9:55:00 AM Zofran [IVP] IVP 4 mg, administered: 10/22/2016 9:55:00 AM The following Medications were prescribed to the patient: Acetaminophen (available over the counter): take according to label instructions. -- Arnaud Sadler DO Afrin nasal spray (Available over the counter): Take according to label instructions. -- Arnaud Sadler DO Motrin (available over the counter): take according to label instructions. -- Arnaud Sadler DO Zofran (orally disintegrating tablets) 4 mg: take 1-2 orally every 8 hours as needed for nausea and vomiting. Dispense ten (10). No refill. Substitution is permissible. -- Arnaud Sadler DO
--- NOTE | 2016-10-23 11:24 | ED MED RECONCILIATION SUMMARY ---
Patient: MY MEJIA Medication Reconciliation Report [facility] VisitID: [id number] [address] [place] [address] 26y, F Registration Date/Time: 10/22/2016 Weight: 75.2 kg Height/Length: 67 in. BMI: 26.0 ALLERGIES: Sulfa Antibiotics The patient's Home Medications are listed below: CONTINUE TAKING THE FOLLOWING MEDICATIONS: seroquel 50-100 mg q.h.s. The source(s) of the original Home Medication information: Not obtained. The following Medications were given to the patient in the Emergency Department: IV NS IV Fluids bolus 0, then 1000 mL/hr, administered: 10/22/2016 9:59:00 AM Dilaudid [IVP] IVP 0.5 mg, administered: 10/22/2016 9:55:00 AM Zofran [IVP] IVP 4 mg, administered: 10/22/2016 9:55:00 AM The following Medications were prescribed to the patient: Acetaminophen (available over the counter): take according to label instructions. -- Arnaud Sadler DO Afrin nasal spray (Available over the counter): Take according to label instructions. -- Arnaud Sadler DO Motrin (available over the counter): take according to label instructions. -- Arnaud Sadler DO Zofran (orally disintegrating tablets) 4 mg: take 1-2 orally every 8 hours as needed for nausea and vomiting. Dispense ten (10). No refill. Substitution is permissible. -- Arnaud Sadler DO
--- NOTE | 2016-10-23 11:24 | ED MAR SUMMARY ---
..... Medication Administration Record [facility] [address] [place] [address] Patient: MY MEJIA Visit ID: [id number] 26y, F Weight: 75.2 kg Height/Length: 67 in BMI: 26 ALLERGIES: Sulfa Antibiotics Given 09:55 10/22/2016 Kristie Euceda R.N. Medication Administered: DILAUDID [IVP] (HYDROMORPHONE HCL PF), Dose: 0.5 mg IVP over 1 minute(s), Site: #1. Medication Ordered: Dilaudid IV 0.5 mg (NOW). Given 09:55 10/22/2016 Kristie uEceda R.N. Medication Administered: ZOFRAN [IVP] (ONDANSETRON HCL), Dose: 4 mg IVP over 1 minute(s), Site: #1. Medication Ordered: Zofran IV 4 mg (NOW). Start 09:59 10/22/2016 Kristie Euceda R.N., Stop 11:00 10/22/2016 Carla Juarez R.N. Medication Administered: IV NS (SALINE), Dose: IV Fluids over 1 hour(s), Rate: 1000 mL/hr, Dispensed: 1000 mL bag, Site: #1 right AC. Medication Ordered: IV NS : initial bolus 1000 mL (1000 mL/hr), then 1000 mL/hr for X1 (NOW).
== END 2016-10-22 11:15 | disposition home or self-care (01) ==
LOC: ED SRH 08:49
DX: J00 Acute nasopharyngitis [common cold] (principal); B97.89 Other viral agents as the cause of diseases classified elsewhere; J01.00 Acute maxillary sinusitis, unspecified; R74.8 Abnormal levels of other serum enzymes; K21.9 Gastro-esophageal reflux disease without esophagitis; J45.909 Unspecified asthma, uncomplicated; Z88.2 Allergy status to sulfonamides
CPT/HCPCS: 90004; 90100; 91400; 92760; 92761; 92762; 92763; 92764; 92765; 92766; 92767; 93004; 93070; 94060; 95059

== ENCOUNTER 2017-03-28 12:17 | Emergency (ER) | payer OTHER ==
--- NOTE | 2017-03-28 13:00 | ED NURSING NOTES ---
Clinical Report - Nurses [address] [place] [address] 03/28/2017 12:18 Patient: MY MEJIA TRIAGE Acuity: LEVEL 4. Chief Complaint: SKIN LESION. Alert. No acute distress. SEPSIS SCREEN: Sepsis Screen. Negative (no infection suspected/documented). --12:35 Leora German R.N. 12:33 03/28/17. BP: 118/70. HR: 60. RR: 12. O2 saturation: 99%. Temp: 98.6 F (oral). Pain level now: 11/13. --12:35 Leora German R.N. Weight: 78 kg stated. Height/Length: 67 inches Per Patient. BMI: 27. --12:35 Leora German R.N. Medications seroquel 50-100 mg q.h.s.. --12:34 Leora German R.N. CloNIDine HCl Oral. --12:34 Leora German R.N. Medication/allergy information source: the patient. --12:35 Leora German R.N. Allergies Sulfa Antibiotics. --12:34 Leora German R.N. History Arrived by private vehicle. Historian: patient. Accompanied by friend. Reported as located on the face and lips. This started yesterday. No fever, muscle aches or cough. Treatment PRIVATE EQUITY ASSOCIATE: None. SOCIAL HX: Never smoker. No alcohol use or drug use. FALL RISK ASSESSMENT: Fall risk assessment completed. No fall risk identified. NUTRITIONAL RISK ASSESSMENT: The nutritional risk assessment revealed no deficiencies. FUNCTIONAL ASSESSMENT: Functional assessment: no impairments noted. LEARNING NEEDS ASSESSMENT: The learning needs assessment revealed no barriers. SKIN INTEGRITY ASSESSMENT: Skin integrity risk assessment completed. No skin integrity risk identified. --12:35 Leora German R.N. PROBLEMS: Headache. Sinusitis. Abnormal Liver Function Test. URI. Bipolar Disorder. Endometriosis. Cystitis. Hematuria. Pelvic Pain. Dysuria. Vaginitis. Cellulitis. Cervical Strain. MRSA Infection. Depression. Anxiety Reaction. Irritable Bowel Syndrome. Gastroesophageal Reflux. Asthma. ADHD - Attention Deficit Hyperactivity Disorder. UTI - Urinary Tract Infection. LNMP - Last Normal Menstrual Period. --12:35 Leora German R.N. ADDITIONAL SURGERIES: Bladder hydro distention. Bladder surgery . Dental Work. Dilatation & Curettage. Laparoscopy. [place]son Teeth Extraction. --12:35 Leora German R.N. Assessment GENERAL / NEURO / PSYCH: Alert. Oriented X 4. Appears in no acute distress. Patient appears calm and cooperative. RESPIRATORY: Respirations not labored. CVS: Capillary refill less than 2 seconds. GI / : Abdomen soft and nontender. SKIN: Mucous membranes are pink. Skin is warm and dry. --12:35 Leora German R.N. Interventions ID band on patient. To treatment room. --12:35 Leora German R.N. DISPOSITION / DISCHARGE Departure time: 13:15 Mar 28 2017. Condition at departure: unchanged and stable. No learning barriers present. Discharge instructions provided and reviewed with the patient. Patient verbalized understanding. Written instructions provided in Yi. The patient was discharged by the physician. She was discharged home and accompanied by library services dean. She left the Emergency Department ambulatory and via private vehicle. --16:06 Leora German R.N. Locked/Released at 03/28/2017 16:06 by Leora German R.N.
--- NOTE | 2017-03-28 13:00 | ED CLINICAL REPORT ---
Clinical Report - Physicians/Mid Levels [facility] [address] [place] [address] 03/28/2017 12:18 Patient: MY MEJIA Time Seen: 1245; initial patient contact. Arrived- By private vehicle. Historian- patient. HISTORY OF PRESENT ILLNESS Chief Complaint: LESION. This started past few days and is still present (unchanged). It was abrupt in onset and has been constant but is not gone now. It is described as painful and burning. It has been located on the lips (right upper). No cause has been identified. (states she just returned from [place]. Concerned that it could be MRSA. States the lesion looked like a blister that popped.). Similar symptoms previously: None. Recent medical care: Not recently seen/assessed. REVIEW OF SYSTEMS No fever, chills, difficulty breathing, hoarseness or headache. No abdominal pain, nausea or vomiting. All systems otherwise negative, except as recorded above. PAST HISTORY See nurses notes. Tetanus immunization status is unknown. Medications: CloNIDine HCl Oral. seroquel 50-100 mg q.h.s.. Allergies: Sulfa Antibiotics. SOCIAL HISTORY Never smoker. No alcohol use or drug use. Recent travel- ([place]). Is a local resident. ADDITIONAL NOTES The nursing notes have been reviewed. PHYSICAL EXAM Vital Signs: 03/28/2017 12:33 BP: 118/70. HR: 60. RR: 12. O2 saturation: 99%. Temp: 98.6 F. Pain level now: 2/10. Blood pressure normal. Oxygen saturation normal. Appearance: Alert. Oriented X3. No acute distress. Eyes: Pupils equal, round and reactive to light. Conjunctivae and eyelids normal. ENT: Ears normal. Nose normal. Pharynx normal. ( Left upper lip with 1 cm area of vesicular lesions. no surrounding erythema. no masses. no other signs of infection.). Neck: Mild right anterior neck lymphadenopathy present. Neck supple. CVS: Normal heart rate and rhythm. Heart sounds normal. Respiratory: No respiratory distress. Breath sounds normal. Chest nontender. Abdomen: Nontender. No organomegaly. Skin: Skin warm and dry. Normal skin color. No rash. Normal skin turgor. PROGRESS AND PROCEDURES Course of Care: the patient is a 27-year-old female with no pertinent past medical history presenting for evaluation of lesion to the right upper lip. No other signs of systemic involvement. Patient with classical types of herpetic lesion. Patient with recent travel and likely exposure. Patient also could have exacerbating circumstances with the severe heat in the area at the time of her travel. Patient states that she was outside and the temperature was approximately 117F. Patient without any history of immuno-compromising factors or steroid use. Had a discussion with the patient in regards to antiviral therapy. Patient states that she will manage the lesions with [id number] remedies. Discussed with the patient workup. Emergency department including her diagnosis, home care, follow-up, and return precautions. All questions have been answered. The patient expressed understanding of these instructions and was agreeable to them. Do not fill patient has a cellulitic type of infection on the lip. Had a discussion with the patient in regards to her upcoming surgery appointment in 4 days. Patient is a she will call her doctor to check to see if this is a contraindication to having her surgery done. Disposition: Discharged. Condition: good. CLINICAL IMPRESSION 03/28/2017 12:33 BP: 118/70. HR: 60. RR: 12. O2 saturation: 99%. Temp: 98.6 F. Pain level now: 2/10. Blood pressure normal. Oxygen saturation normal. Herpes labialis (acute). INSTRUCTIONS (please consider updating your tetanus vaccine in the future). Warnings: GENERAL WARNINGS: Return or contact your physician immediately if your condition worsens or changes unexpectedly, if not improving as expected, or if other problems arise. Specifically return if pain, vomiting, bleeding, breathing difficulty or fever. Your Current Medications: CONTINUE TAKING THE FOLLOWING MEDICATIONS: CloNIDine HCl Oral. seroquel 50-100 mg q.h.s.*. OTC Medications: Acetaminophen (available over the counter): take according to label instructions. Motrin (available over the counter): take according to label instructions. Follow-up: Return to the emergency department as needed. Follow up with your doctor in three days. Reason for referral: recheck today's concerns. Summary of care provided to patient via paper. Screening today revealed the patient's blood pressure to be in the normal range. The patient should follow up with a primary care provider for blood pressure management. Understanding of the discharge instructions verbalized by patient. (Electronically signed by Ricardo Paez Dr. 03/28/2017 13:35)
--- NOTE | 2017-03-28 13:00 | ED CLINICAL REPORT ---
Clinical Report - Physicians/Mid Levels [facility] [address] [place] [address] 03/28/2017 12:18 Patient: MY MEJIA Time Seen: 1245; initial patient contact. Arrived- By private vehicle. Historian- patient. HISTORY OF PRESENT ILLNESS Chief Complaint: LESION. This started past few days and is still present (unchanged). It was abrupt in onset and has been constant but is not gone now. It is described as painful and burning. It has been located on the lips (right upper). No cause has been identified. (states she just returned from [place]. Concerned that it could be MRSA. States the lesion looked like a blister that popped.). Similar symptoms previously: None. Recent medical care: Not recently seen/assessed. REVIEW OF SYSTEMS No fever, chills, difficulty breathing, hoarseness or headache. No abdominal pain, nausea or vomiting. All systems otherwise negative, except as recorded above. PAST HISTORY See nurses notes. Tetanus immunization status is unknown. Medications: CloNIDine HCl Oral. seroquel 50-100 mg q.h.s.. Allergies: Sulfa Antibiotics. SOCIAL HISTORY Never smoker. No alcohol use or drug use. Recent travel- ([place]). Is a local resident. ADDITIONAL NOTES The nursing notes have been reviewed. PHYSICAL EXAM Vital Signs: 03/28/2017 12:33 BP: 118/70. HR: 60. RR: 12. O2 saturation: 99%. Temp: 98.6 F. Pain level now: 2/10. Blood pressure normal. Oxygen saturation normal. Appearance: Alert. Oriented X3. No acute distress. Eyes: Pupils equal, round and reactive to light. Conjunctivae and eyelids normal. ENT: Ears normal. Nose normal. Pharynx normal. ( Left upper lip with 1 cm area of vesicular lesions. no surrounding erythema. no masses. no other signs of infection.). Neck: Mild right anterior neck lymphadenopathy present. Neck supple. CVS: Normal heart rate and rhythm. Heart sounds normal. Respiratory: No respiratory distress. Breath sounds normal. Chest nontender. Abdomen: Nontender. No organomegaly. Skin: Skin warm and dry. Normal skin color. No rash. Normal skin turgor. PROGRESS AND PROCEDURES Course of Care: the patient is a 27-year-old female with no pertinent past medical history presenting for evaluation of lesion to the right upper lip. No other signs of systemic involvement. Patient with classical types of herpetic lesion. Patient with recent travel and likely exposure. Patient also could have exacerbating circumstances with the severe heat in the area at the time of her travel. Patient states that she was outside and the temperature was approximately 117F. Patient without any history of immuno-compromising factors or steroid use. Had a discussion with the patient in regards to antiviral therapy. Patient states that she will manage the lesions with [id number] remedies. Discussed with the patient workup. Emergency department including her diagnosis, home care, follow-up, and return precautions. All questions have been answered. The patient expressed understanding of these instructions and was agreeable to them. Do not fill patient has a cellulitic type of infection on the lip. Had a discussion with the patient in regards to her upcoming surgery appointment in 4 days. Patient is a she will call her doctor to check to see if this is a contraindication to having her surgery done. Disposition: Discharged. Condition: good. CLINICAL IMPRESSION 03/28/2017 12:33 BP: 118/70. HR: 60. RR: 12. O2 saturation: 99%. Temp: 98.6 F. Pain level now: 2/10. Blood pressure normal. Oxygen saturation normal. Herpes labialis (acute). INSTRUCTIONS (please consider updating your tetanus vaccine in the future). Warnings: GENERAL WARNINGS: Return or contact your physician immediately if your condition worsens or changes unexpectedly, if not improving as expected, or if other problems arise. Specifically return if pain, vomiting, bleeding, breathing difficulty or fever. Your Current Medications: CONTINUE TAKING THE FOLLOWING MEDICATIONS: CloNIDine HCl Oral. seroquel 50-100 mg q.h.s.*. OTC Medications: Acetaminophen (available over the counter): take according to label instructions. Motrin (available over the counter): take according to label instructions. Follow-up: Return to the emergency department as needed. Follow up with your doctor in three days. Reason for referral: recheck today's concerns. Summary of care provided to patient via paper. Screening today revealed the patient's blood pressure to be in the normal range. The patient should follow up with a primary care provider for blood pressure management. Understanding of the discharge instructions verbalized by patient. (Electronically signed by Ricardo Paez Dr. 03/28/2017 13:35)
--- NOTE | 2017-03-28 13:00 | ED NURSING NOTES ---
Clinical Report - Nurses [facility] [address] [place] [address] 03/28/2017 12:18 Patient: MY MEJIA TRIAGE Acuity: LEVEL 4. Chief Complaint: SKIN LESION. Alert. No acute distress. SEPSIS SCREEN: Sepsis Screen. Negative (no infection suspected/documented). --12:35 Leora German R.N. 12:33 03/28/17. BP: 118/70. HR: 60. RR: 12. O2 saturation: 99%. Temp: 98.6 F (oral). Pain level now: 11/13. --12:35 Leora German R.N. Weight: 78 kg stated. Height/Length: 67 inches Per Patient. BMI: 27. --12:35 Leora German R.N. Medications seroquel 50-100 mg q.h.s.. --12:34 Leora German R.N. CloNIDine HCl Oral. --12:34 Leora German R.N. Medication/allergy information source: the patient. --12:35 Leora German R.N. Allergies Sulfa Antibiotics. --12:34 Leora German R.N. History Arrived by private vehicle. Historian: patient. Accompanied by friend. Reported as located on the face and lips. This started yesterday. No fever, muscle aches or cough. Treatment [employer]OR[employer]: None. SOCIAL HX: Never smoker. No alcohol use or drug use. FALL RISK ASSESSMENT: Fall risk assessment completed. No fall risk identified. NUTRITIONAL RISK ASSESSMENT: The nutritional risk assessment revealed no deficiencies. FUNCTIONAL ASSESSMENT: Functional assessment: no impairments noted. LEARNING NEEDS ASSESSMENT: The learning needs assessment revealed no barriers. SKIN INTEGRITY ASSESSMENT: Skin integrity risk assessment completed. No skin integrity risk identified. --12:35 Leora German R.N. PROBLEMS: Headache. Sinusitis. Abnormal Liver Function Test. URI. Bipolar Disorder. Endometriosis. Cystitis. Hematuria. Pelvic Pain. Dysuria. Vaginitis. Cellulitis. Cervical Strain. MRSA Infection. Depression. Anxiety Reaction. Irritable Bowel Syndrome. Gastroesophageal Reflux. Asthma. ADHD - Attention Deficit Hyperactivity Disorder. UTI - Urinary Tract Infection. LNMP - Last Normal Menstrual Period. --12:35 Leora German R.N. ADDITIONAL SURGERIES: Bladder hydro distention. Bladder surgery . Dental Work. Dilatation & Curettage. Laparoscopy. Bourg Teeth Extraction. --12:35 Leora German R.N. Assessment GENERAL / NEURO / PSYCH: Alert. Oriented X 4. Appears in no acute distress. Patient appears calm and cooperative. RESPIRATORY: Respirations not labored. CVS: Capillary refill less than 2 seconds. GI / : Abdomen soft and nontender. SKIN: Mucous membranes are pink. Skin is warm and dry. --12:35 Leora German R.N. Interventions ID band on patient. To treatment room. --12:35 Leora German R.N. DISPOSITION / DISCHARGE Departure time: 13:15 Mar 28 2017. Condition at departure: unchanged and stable. No learning barriers present. Discharge instructions provided and reviewed with the patient. Patient verbalized understanding. Written instructions provided in Greek. The patient was discharged by the physician. She was discharged home and accompanied by consulting project director. She left the Emergency Department ambulatory and via private vehicle. --16:06 Leora German R.N. Locked/Released at 03/28/2017 16:06 by Leora German R.N.
--- NOTE | 2017-03-28 16:07 | ED MAR SUMMARY ---
..... Medication Administration Record [facility] [address], [place] [id number] Patient: MY MEJIA Visit ID: [id number] 27y, F Weight: 78.0 kg Height/Length: 67 in BMI: 27 ALLERGIES: Sulfa Antibiotics
--- NOTE | 2017-03-28 16:07 | ED MED RECONCILIATION SUMMARY ---
Patient: MY MEJIA Medication Reconciliation Report [facility] VisitID: [id number] [address] [place] [address] 27y, F Registration Date/Time: 03/28/2017 Weight: 78.0 kg Height/Length: 67 in. BMI: 27.0 ALLERGIES: Sulfa Antibiotics The patient's Home Medications are listed below: CONTINUE TAKING THE FOLLOWING MEDICATIONS: CloNIDine HCl Oral seroquel 50-100 mg q.h.s. The source(s) of the original Home Medication information: patient The following Medications were given to the patient in the Emergency Department: None. The following Medications were prescribed to the patient: Acetaminophen (available over the counter): take according to label instructions. -- Ricardo Paez Dr. Motrin (available over the counter): take according to label instructions. -- Ricardo Paez Dr.
--- NOTE | 2017-03-28 16:07 | ED DISCHARGE INSTRUCTIONS ---
Patient: MY MEJIA General Instructions [facility] VisitID: [id number] [place] [address] 27y, F Registration Date/Time: 03/28/2017 03/28/2017 12:33 BP: 118/70. HR: 60. RR: 12. O2 saturation: 99%. Temp: 98.6 F. Pain level now: 210. Blood pressure normal. Oxygen saturation normal. Herpes labialis (acute). INSTRUCTIONS (please consider updating your tetanus vaccine in the future). Warnings: GENERAL WARNINGS: Return or contact your physician immediately if your condition worsens or changes unexpectedly, if not improving as expected, or if other problems arise. Specifically return if pain, vomiting, bleeding, breathing difficulty or fever. Your Current Medications: CONTINUE TAKING THE FOLLOWING MEDICATIONS: CloNIDine HCl Oral. seroquel 50-100 mg q.h.s.*. OTC Medications: Acetaminophen (available over the counter): take according to label instructions. Motrin (available over the counter): take according to label instructions. Follow-up: Return to the emergency department as needed. Follow up with your doctor in three days. Reason for referral: recheck today's concerns. Summary of care provided to patient via paper. Screening today revealed the patient's blood pressure to be in the normal range. The patient should follow up with a primary care provider for blood pressure management. Understanding of the discharge instructions verbalized by patient. ADDITIONAL INFORMATION Cold Sore (Child) A cold sore (also called fever blister) is a common viral infection around the lips. It is caused by the herpes simplex virus. There are two types of herpes simplex viruses (type 1 and type 2).Type 1 causes most cold sores, while type 2 causes most herpes genital infections. A person usually gets the virus during dietetic tech by kissing or touching the cold sore of another child or adult. Most adults have been exposed to the virus, although only about one third will ever get a cold sore. Because the virus remains in the body even after the sores heal, most children will have future outbreaks. The frequency of outbreaks varies with each child. Some will never have another outbreak. Others will have several a year. A cold sore starts as a small group of painful blisters on the lip or inside the mouth. The lip blisters break open, dry up, and usually go away within one week. Different things can trigger an outbreak. These include: Emotional stress Another illness (cold, flu, or fever from any cause) Heavy sun exposure Overexertion and fatigue Menstruation Cold sores can be spread a few days before the onset of an outbreak to when the blisters have dried. Taking antiviral medication can shorten the time sores heal by about 1 to 2 days. If you get frequent sores, antiviral medications can be used to reduce the number of outbreaks. Home Care You may use acetaminophen (Tylenol) or ibuprofen (Motrin, Advil) to control pain or fever, unless another medicine was prescribed. NOTE: If you have chronic liver or kidney disease or ever had a stomach ulcer or GI bleeding, talk with your doctor before using these medicines. Aspirin should never be used in anyone under 18 years of age who is ill with a fever. It can cause severe liver damage. Mcbo-rvg-nexfrcp remedies such as Campho-Phenique or Anbesol may help relieve pain. For severe pain, apply an ice cube to the lip sore for a few minutes at a time. Rinse the mouth with a glass of warm water mixed with a teaspoon of baking soda to relieve pain. Avoid acidic foods (citrus fruits and tomatoes). Avoid the things listed above that you know can trigger an outbreak. Take any antiviral medications exactly as directed. For best results, start the medication at the first sign of an outbreak. Do not touch the cold sore. Avoid touching your eyes so the virus does not spread there. To avoid spreading the virus to others during an outbreak: Wash your hands often. Do not kiss. Do not share utensils, towels, or toothbrushes. Clean toys with a disinfectant. Wear a hat and use zinc oxide or sunblock on your lips before going out in the sun. Children with open draining lip sores should be kept out of school or daycare until the sore forms a scab. Follow Up with your doctor as advised by our staff. Return Promptly or contact your doctor if any of the following occur: Eye pain, redness, or drainage from the eye Headache, stiff neck Inability to eat or drink due to pain Unusual irritability, drowsiness, or confusion You have been given the following additional information: Herpes Labialis, Hsv: Type I (Electronically signed by Ricardo Paez Dr. 03/28/2017 13:35)
--- NOTE | 2017-03-28 16:07 | ED MAR SUMMARY ---
..... Medication Administration Record [facility] [address] [place], [place] [id number] Patient: MY MEJIA Visit ID: [id number] 27y, F Weight: 78.0 kg Height/Length: 67 in BMI: 27 ALLERGIES: Sulfa Antibiotics
--- NOTE | 2017-03-28 16:07 | ED MED RECONCILIATION SUMMARY ---
Patient: MY MEJIA Medication Reconciliation Report [facility] VisitID: [id number] [address] [place] [address] 27y, F Registration Date/Time: 03/28/2017 Weight: 78.0 kg Height/Length: 67 in. BMI: 27.0 ALLERGIES: Sulfa Antibiotics The patient's Home Medications are listed below: CONTINUE TAKING THE FOLLOWING MEDICATIONS: CloNIDine HCl Oral seroquel 50-100 mg q.h.s. The source(s) of the original Home Medication information: patient The following Medications were given to the patient in the Emergency Department: None. The following Medications were prescribed to the patient: Acetaminophen (available over the counter): take according to label instructions. -- Ricardo Paez Dr. Motrin (available over the counter): take according to label instructions. -- Ricardo Paez Dr.
== END 2017-03-28 13:15 | disposition home or self-care (01) ==
LOC: ED SRH 12:17
DX: B00.1 Herpesviral vesicular dermatitis (principal); F31.9 Bipolar disorder, unspecified; K21.9 Gastro-esophageal reflux disease without esophagitis; Z79.899 Other long term (current) drug therapy; Z88.2 Allergy status to sulfonamides